=== PATIENT | female | born 1950 | race Caucasian/White ===

== ENCOUNTER 2021-07-03 12:49 | Emergency (ER) | payer OTHER, MEDICARE ==
[~2021-07-03] VITALS: Ht 160 cm; Wt 110.2 kg
[2021-07-03] MEDS ORDERED: GLIPIZIDE ER10 MG PO (13:41)
[2021-07-03] MEDS ORDERED: HYDROCHLOROTHIA25 MG PO (13:41)
[2021-07-03] MEDS ORDERED: ATORVASTATIN CA40 MG PO (13:41)
[2021-07-03] MEDS ORDERED: OMEPRAZOLE20 MG PO (13:41)
[2021-07-03] MEDS ORDERED: IRBESARTAN75 MG PO (13:41)
[2021-07-03] MEDS ORDERED: FLUTICASONE PRO16 GM NAS (13:42)
[2021-07-03] MEDS ORDERED: METFORMIN HCL750 MG PO (13:42)
== END 2021-07-03 14:50 | disposition home or self-care (01) ==
LOC: ED 12:49
DX: S60.051A Contusion of right little finger without damage to nail, initial encounter (principal); Z88.5 Allergy status to narcotic agent; W23.0XXA Caught, crushed, jammed, or pinched between moving objects, initial encounter
CPT/HCPCS: 73140; 99283-25; A9270

== ENCOUNTER 2025-01-13 07:47 | Day surgery (SDC) | payer MEDICARE, OTHER ==
[~2025-01-13] VITALS: Ht 157.5 cm; Wt 89.0 kg
[~2025-01-13 07:47] MED LIST: ATORVASTATIN CA40 MG PO; CEFAZOLIN SODIUM 2 GM in SODIUM CHLORIDE 0.9% 100 ML IV SCH; FLUTICASONE PRO16 GM NAS; GLIPIZIDE ER10 MG PO; HEParin SOD (PORCINE) 5,000 UNIT/ML SDV SUB-Q SCH; HYDROCHLOROTHIA25 MG PO; IBLOOD GLUCOSE TEST STRIP 1 EA TEST VI PRN; IRBESARTAN75 MG PO; LACTATED RINGER'S 1,000 ML IV SCH; LIDOCAINE HCL 1% 5 ML SDV INJ ONE; METFORMIN HCL750 MG PO; NORVASC10 MG PO; OMEPRAZOLE20 MG PO; OZEMPIC2 MG/0.75 SUB-Q
[2025-01-13 08:21] VITALS: BP 142/66
[2025-01-13] MEDS ORDERED: LIDOCAINE HCL 2% 5 ML SDV ONE (08:57)
[2025-01-13] MEDS ORDERED: Methylene Blue 100 MG/10 ML SDV ONE (09:30)
[2025-01-13] MEDS ORDERED: fentaNYL citrate 100 MCG/2 ML VIAL ONE ×2 (09:46→10:39)
[2025-01-13] MEDS ORDERED: KETOROLAC TROMETHAMINE 30 MG/ML VIAL ONE (10:36)
[2025-01-13] MEDS ORDERED: DEXAMETHASONE SOD PHOS 4 MG/ML VIAL ONE (10:36)
[2025-01-13] MEDS ORDERED: ACETAMINOPHEN 1,000 MG/100 ML VIAL ONE (10:46)
[2025-01-13] MEDS ORDERED: HYDROmorphone HCL 1 MG/ML SYR IV PRN (11:00)
[2025-01-13] MEDS ORDERED: IBLOOD GLUCOSE TEST STRIP 1 EA TEST VI PRN (11:00)
[2025-01-13] MEDS ORDERED: fentaNYL citrate 50 MCG/ML SDV IV PRN (11:00)
[2025-01-13] MEDS ORDERED: NALOXONE HCL 0.4 MG SYR IV PRN ×2 (11:00→11:45)
[2025-01-13] MEDS ORDERED: IBUPROFEN 600 MG TAB PO PRN (11:45)
[2025-01-13] MEDS ORDERED: IBUPROFEN600 MG PO (11:45)
[2025-01-13] MEDS ORDERED: ACETAMINOPHEN 500 MG TAB PO PRN (11:45)
[2025-01-13] MEDS ORDERED: OXYCODON-ACETA1 EAC2 PO (11:45)
[2025-01-13] MEDS ORDERED: OXYCODONE/APAP 7.5/325 TAB PO PRN (11:45)
[2025-01-13] MEDS ORDERED: ACETAMINOPHEN500 MG PO (11:46)
--- NOTE | 2025-01-13 12:05 | NUR ---
01/13/25 1205 Kaitlyn Patel 1127- PT PRESENTS TO PACU, SEMI HUBER POSITION, REACTIVE TO STIMULUS, BUT STAYS ASLEEP. BREATHING EVEN AND NON LABORED WITH O2 AT 6L PER MASK. LR INFUSING TO RFA IV. DRESSING TO LEFT BREAST AND LEFT AXILLA CDI. ABD SOFT, NON DISTENDED. ALL MONITORS IN PLACE. 1135- PT WAKES TO VERBAL STIMULUS, REORIENTED TO TIME AND PLACE. REPORTS SITE FEELING SORE, NO NAUSEA. 1137- MOVED TO ROOM AIR. 1145- PT C/O 6/10 PAIN, MEDICATED WITH FENTANYL PER ORDERS. DR GREGORY AT BEDSIDE TO DISCUSS FINDINGS. 1150- 2ND DOSE FENTANYL GIVE, NOT MUCH CHANGE FROM THE FIRST. 1152- ICE WATER PROVIDED, HEAD OF BED ELEVATED, TOLERATING WELL, NO NAUSEA. 1200- PT REEPORTS NO CHANGE IN PAIN, /10 AT THIS TIME, MEDICATED WITH DILAUDID PER ORDERS. WILL CONTINUE TO MONITOR.
[2025-01-13 12:28] VITALS: BP 144/59
--- NOTE | 2025-01-13 13:03 | NUR ---
1230: PATIENT BACK IN DAY SURGERY ROOM FROM PACU. RATES PAIN 4-5/10 IN THE LEFT BREAST AREA. LEFT BREAST AND LEFT AXILLARY DRESSING CLEAN, DRY AND INTACT. VS CHECKED. IV SITE WNL. TOLERATING WATER. GIVEN PUDDING TO EAT. CALL LIGHT WITHIN REACH. SON AT BEDSIDE. 1255: CHECKED PATIENT. TOLERATED PUDDING. NO NEEDS AT THIS TIME. SON AT BEDSIDE. CALL LIGHT WITHIN REACH.
[2025-01-13 13:30] VITALS: BP 132/61
[2025-01-13] MEDS ORDERED: SEVOFLURANE 250 ML BTL INH ONE (13:43)
--- NOTE | 2025-01-13 14:54 | NUR ---
1330: VS CHECKED. BOTH LEFT BREAST AND LEFT AXILLARY DRESSINGS CLEAN, DRY AND INTACT. PATIENT DECLINES PAIN MEDICATION AT THIS TIME. SON IN ROOM WITH PATIENT. CALL LIGHT WITHIN REACH. 1350: PATIENT ASSISTED OOB AND TO BATHROOM. GAIT STEADY. VOID WITHOUT DIFFICUTLY. GAIT STEADY BACK TO ROOM. 1411: DISCHARGE INSTRUCTIONS GIVEN TO PATIENT AND SON. PATIENT GETTING DRESSED. IV DC'D WNL. TIP INTACT. DRESSING APPLIED. 1418: PATIENT DISCHARGED TO HOME VIA WHEELCHAIR WITH SON.
--- NOTE | 2025-01-13 19:47 | OR ---
[facility] [address] [place], [place] [address] Signed DATE OF OPERATION: 01/13/2025 SURGEON: Sridevi Gregory MD PREOPERATIVE DIAGNOSES: Left medial central breast infiltrating ductal carcinoma, ER/NH positive, HER-2/adilson negative, grade 3. POSTOPERATIVE DIAGNOSES: Left medial central breast infiltrating ductal carcinoma, ER/NH positive, HER-2/adilson negative, grade 3. PROCEDURES: 1. Injection of methylene blue for sentinel lymph node identification. 2. Left deep axillary sentinel lymph node biopsies. 3. Left partial mastectomy with RENATA forge press operator localization, medial upper left breast. ANESTHESIA: General LMA, Roberto Villanueva CRNA and local 10 mL of 0.25% Marcaine with epinephrine. INDICATION: This 74-year-old white woman is a patient of Dr. Immanuel Mackay and known to me from the past for other issues. She had an annual mammogram, was found to have an abnormality on the left breast undergoing diagnostic unilateral mammogram and the central slightly medial left breast abnormality identified considered category 4. Biopsy was obtained by image guided on December 20, 2024 showing infiltrating ductal carcinoma considered grade 3. 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 The lesion was ER positive, NH positive, and HER-2/adilson negative. The lesion is not palpable clinically. I have offered various options of management for her breast cancer and she wishes to undergo image guided rather localization left partial mastectomy as well as sentinel lymph node biopsies, anticipating possible radiation therapy postoperatively and other interventions as appropriate. The risk of bleeding, infection, cosmetic deformity, other unforeseen complications related to operation were reviewed with her. She understands, wished to proceed. FINDINGS: Uptake with the RENATA forge press operator was reliable and located deep within the left breast in the Electronically Signed By: SRIDEVI GREGORY MD 01/13/25 194 PATIENT NAME: JEREMIAH DELGADO OPERATIVE REPORT DATE OF : 48 REPORT #: [id number] PHYSICIAN: SRIDEVI GREGORY MD PCP: IMMANUEL MACKAY DO REPORT IS CONFIDENTIAL AND NOT TO BE RELEASED WITHOUT AUTHORIZATION [facility] [address] [place], [place] [address] Signed central upper medial aspect. The left axillary sentinel lymph node signal was high and good uptake of methylene blue dye was noted as well. Final pathology is pending. The palpable lesion within the central portion of the excised breast measured approximately a centimeter or so not much more that clinically. Specimen radiograph confirmed the RENATA forge press operator lazarus was in the central portion of the specimen excised. DESCRIPTION OF PROCEDURE: The patient was brought to the operating room, given a general LMA type anesthetic. Preoperative antibiotic Ancef was given and sequential compression device stockings used and heparin subcutaneously administered. The left breast had been interrogated in the preoperative area assuring the RENATA forge press operator would be functional. The uptake was most dominant in the medial upper aspect of the left breast. Injection of 1 mL of 50% diluted methylene blue dye was undertaken in the left periareolar area. Interrogation of the left axilla with the C-Trak probe showed good uptake of radionuclide to the superior aspect of the axilla. The left breast and axillary area were prepared with a chlorhexidine solution and draped sterilely. Using the C-Trak probe as a guide, a small transverse incision was made in the superior aspect of the axilla. Dissection carried through the subcutaneous tissue with electrocautery and blunt dissection and axillary fat incised. Entry to the axillary cavity allowed for re-application of the C-Trak probe and the area of maximum radioactive uptake identified. Further dissection showed blue lymphatics leading ultimately to an obvious axillary lymph node. This was dissected free with a generous amount of additional axillary fat with it and was excised and affirmed to have good uptake of the radioactivity and blue dye and at least one sentinel lymph node in the central portion, but likely others as well. A suture was placed into the lymph node for pathologic identification. There was no sign of untoward bleeding in the axilla. Reinspection with the C-Trak probe showed no other areas of uptake. There was no other blue lymphatic channels to identify or other sentinel lymph nodes at this point. The wound was then packed with laparotomy sponge and plan turned to excision of the breast lesion itself. Using the RENATA forge press operator probe device, significant uptake was noted in the medial upper aspect of the left breast. Although, a cosmetic incision with a circumareolar approach would be optimal. The lesion was simply too far for this to be practical and on that basis, an incision was made directly over the medial upper aspect of the left breast in the area of maximum uptake for the RENATA forge press operator device. An incision was made with a 15 blade, was divided with electrocautery. Some parenchyma was traversed before wide resection undertaken with an Allis clamp, securing the area in question. The RENATA forge press operator probe was helpful in orienting for the excision. Excision was taken down to the pectoralis fascia, first superiorly, then medially, and then inferiorly and laterally. The specimen was extracted, marked with a short stitch superior and long stitch lateral for pathologic orientation. The RENATA probe affirmed that the forge press operator was in the central portion of breast. Gentle palpation of the excised specimen did demonstrate a firm Electronically Signed By: SRIDEVI GREGORY MD 01/13/251946 PATIENT NAME: JEREMIAH DELGADO OPERATIVE REPORT DATE OF : 48 REPORT #: [id number] PHYSICIAN: SRIDEVI GREGORY MD PCP: IMMANUEL MACKAY DO REPORT IS CONFIDENTIAL AND NOT TO BE RELEASED WITHOUT AUTHORIZATION [facility] [address] [facility] [place] [place] [address] Signed nodule in the center portion of the breast specimen corresponding to the lesion in question. Subsequent evaluation by the radiologist confirmed that the RENATA forge press operator was in the central portion of the excised breast. Irrigation was undertaken in this excision cavity. Cavity was marked on its surface and in the parenchyma with small clips for possible radiation therapy in the future. The wound was then closed with interrupted 2-0 Vicryl including the parenchyma of the breast and a small portion of the pectoralis. Good reapproximation was noted. The skin was closed with running subcuticular 3-0 Vicryl. Steri-Strips were applied as was an Acticoat dressing. Reinspection of the left axilla shows good hemostasis. The wound was closed in layers with interrupted 2-0 Vicryl and running subcuticular 3-0 Vicryl for the skin. Steri-Strips were applied to both wounds and Acticoat dressings applied to both as well. Blood loss was less than 10 mL in aggregate. Sponge, needle, and instrument counts reported as correct x3. MD ZEIO Phipps/ORA /[id number] cc: Immanuel Mackay DO Copies: IMMANUEL MACKAY DO ~ Electronically Signed By: SRIDEVI GREGORY MD 01/13/25 1947 PATIENT NAME: JEREMIAH DELGADO OPERATIVE REPORT DATE OF : 48 REPORT #: [id number] PHYSICIAN: SRIDEVI GREGORY MD PCP: IMMANUEL MACKAY DO REPORT IS CONFIDENTIAL AND NOT TO BE RELEASED WITHOUT AUTHORIZATION
--- NOTE | 2025-01-17 16:11 | PATH ---
[facility] [address] [facility] [place], [place] [address] Signed SPECIMEN(S): A LEFT BREAST SENTINEL LYMPH NODE SPECIMEN(S): B LEFT BREAST SPECIMEN SOURCE: A. LEFT BREAST SENTINEL LYMPH NODE B. LEFT BREAST CLINICAL HISTORY: Infiltrating ductal carcinoma left breast. FINAL PATHOLOGIC DIAGNOSIS: A. Left deep sentinel lymph node stitch cordova lymph node: - 3 lymph nodes negative for metastatic neoplasm by routine HE stain (0/3) B. Left breast lumpectomy: - Focal residual invasive ductal carcinoma; favor intermediate grade (see synoptic report) - Focal intermediate grade ductal carcinoma in situ - Changes consistent with previous biopsy INVASIVE CARCINOMA OF THE BREAST: Resection Applies To: A�B SPECIMEN Procedure: Excision (less than total mastectomy) Specimen Laterality: Left TUMOR Histologic Type: Invasive carcinoma of no special type (ductal) Glandular (Acinar) / Tubular Differentiation: Score 3 Nuclear Pleomorphism: Score cannot be determined Mitotic Rate: Score cannot be determined Overall Grade: Score cannot be determined - Due to the small size of the residual focus and accompanying tissue artifact, an exact grade cannot be rendered. Tumor Size: Greatest dimension of largest invasive focus (Millimeters) - 2 mm Ductal Carcinoma In Situ (DCIS): Present Size (Extent) of DCIS: Estimated size (extent) of DCIS is at least (Millimeters) - 5 mm Architectural Patterns: Comedo, Solid Nuclear Grade: Grade II (intermediate) Necrosis: Present, central (expansive "comedo" necrosis) Number of Blocks with DCIS: 1 Number of Blocks Examined: 9 PATIENT NAME: JEREMIAH URENA RECORD #: [id number] PATHOLOGY DATE OF : 48 REPORT #: [id number] PHYSICIAN: CURTIS LOYA PCP: ADRIANA MACKAY DO REPORT IS CONFIDENTIAL AND NOT TO BE RELEASED WITHOUT AUTHORIZATION [facility] [address] [place], [place] [address] Signed Lymphatic and / or Vascular Invasion: Not identified Microcalcifications: Present in DCIS Treatment Effect in the Breast: No known presurgical therapy MARGINS Margin Status for Invasive Carcinoma: All margins negative for invasive carcinoma Distance from Invasive Carcinoma to Closest Margin: 5 mm Closest Margin(s) to Invasive Carcinoma: Superior Margin Status for DCIS: All margins negative for DCIS Distance from DCIS to Closest Margin: 4 mm Closest Margin(s) to DCIS: Superior REGIONAL LYMPH NODES Regional Lymph Node Status: All regional lymph nodes negative for tumor Total Number of Lymph Nodes Examined (sentinel and non-sentinel): 3 Number of Ingraham Nodes Examined: 3 pTNM CLASSIFICATION (AJCC 8th Edition) pT Category: pT1a pN Category: pN0 N Suffix: (sn) Breast Biomarker Testing Performed on Previous Biopsy: Estrogen Receptor (ER) Status: Positive (greater than 10% of cells demonstrate nuclear positivity) Progesterone Receptor (PgR) Status: Positive HER2 (by immunohistochemistry): Equivocal (Score 2+) HER2 (by in situ hybridization): Negative (not amplified) Testing Performed on BB MICROSCOPIC EXAMINATION: Histologic sections of all submitted blocks are examined by light microscopy. These findings, together with the gross examination, support the pathologic diagnosis. GROSS DESCRIPTION: A. The specimen, labeled and designated "Romel, M, left deep sentinel lymph node stitch cordova lymph node," is received in formalin and consists of 5.7 x 4.5 x 2.6 cm portion of yellow-malik adipose tissue that displays a black suture identifying one possible lymph node with a blue dye discoloration that is 1.5 cm in greatest dimension. Upon further dissection an additional two possible lymph nodes are gross identified measuring up to 4.6 cm in greatest dimension. The PATIENT NAME: JEREMIAH URENA PATHOLOGY DATE OF : 48 REPORT #: [id number] PHYSICIAN: CURTIS LOYA PCP: ADRIANA MACKAY DO REPORT IS CONFIDENTIAL AND NOT TO BE RELEASED WITHOUT AUTHORIZATION [facility] [address] [place], [place] [address] Signed lymph nodes are entirely submitted only adipose tissue remains within the container. Cassette Summary: (A1) one possible lymph node with a blue dye discoloration, sectioned (A2) one possible lymph node, bisected (A3-A5) one possible lymph node, sectioned B. The specimen, labeled and designated "Gregg Urena, " and designated on the requisition "left breast lumpectomy tissue," is received in formalin and consists of 94 gram oriented portion of yellow-malik fibroadipose tissue that is 9.6 x 9.2 x 2.8 cm. A short suture is present and identifies the superior margin; a long suture identifies the lateral margin. The specimen is inked as follows: superior - blue; inferior - green; medial - red; lateral - orange; anterior - yellow; and posterior - black. The specimen is serially sectioned from medial to lateral into 11 slices revealing a 1.6 x 1.4 x 1.0 cm pink-white firm ill-defined mass present in slices 4-6. The mass is 4.8 cm from the anterior soft tissue margin, 2.8 cm from the posterior soft tissue margin, 0.3 cm from the superior soft tissue margin, 0.5 cm from the inferior soft tissue margin, 1.7 cm from the medial soft tissue margin, and 3.7 cm from the lateral soft tissue margin. A metallic supervisor type photography detector is identified in slice six. Approximately 80% of the remaining specimen is a yellow-malik greasy adipose tissue and 20% is a white-malik delicate pink fibrous tissue. Retail Specialist sections are submitted in nine cassettes. Cassette Summary: (B1) slice one, medial soft tissue resection margin, perpendicular (B2) fibroadipose tissue adjacent, medial to mass, slice three (B3-B5) mass to closest superior and inferior soft tissue resection margins, perpendicular, slices 4-6 (B6) fibroadipose tissue adjacent, lateral to mass, slice seven (B7) posterior soft tissue resection margin, perpendicular (B8) anterior soft tissue resection margin, perpendicular (B9) slice 11, lateral soft tissue resection margin, perpendicular Time of collection: 11:03 AM January 13, 2025. Time into formalin: 11:03 AM January 13, 2025. Processor load time: 12 PM January 14, 2025. Total fixation time in formalin: 24 hours 57 minutes The ASCO/CAP guidelines related to HER2 and hormone receptor testing in breast specimens have been met and the specimen has been placed in formalin within one hour and fixed in 10% neutral buffered PATIENT NAME: JEREMIAH URENA PATHOLOGY DATE OF : 48 REPORT #: [id number] PHYSICIAN: CURTIS PATHOLOGY PCP: ADRIANA MACKAY DO REPORT IS CONFIDENTIAL AND NOT TO BE RELEASED WITHOUT AUTHORIZATION [facility] [address] [facility] [place] [address] Signed formalin for 6 to 72 hours. FB (under the direct supervision of a pathologist) The Gross Description was prepared using a voice recognition system. The report was reviewed for accuracy; however, sound-alike word errors, addition and/or deletions may occur. If there is any question about this report, please contact Client Services. ADDITIONAL NOTES: Immunohistochemical and/or in situ hybridization studies if performed in this case included appropriate positive controls that reacted as expected. This test was developed and its performance characteristics determined by [facility]. It has not been cleared or approved by the U.S. Food and Drug Administration. The FDA has determined that such clearance or approval is not necessary. This test is used for clinical purposes. It should not be regarded as investigational or for research. [facility] is certified under the Clinical Laboratory Improvement Amendments of 1988 (CLIA) as qualified to perform high complexity clinical laboratory testing. PERFORMING LABORATORY: Technical component was performed by [facility], [address] [place] [id number] (CLIA# [id number]). Professional interpretation was performed [place] [address] (CLIA#: [id number]). Diagnostician: Yonatan Vidal MD Pathologist Electronically Signed 01/17/2025 Copies: ~ PATIENT NAME: JEREMIAH URENA PATHOLOGY DATE OF : 48 REPORT #: [id number] PHYSICIAN: CURTIS LOYA PCP: ADRIANA MACKAY DO REPORT IS CONFIDENTIAL AND NOT TO BE RELEASED WITHOUT AUTHORIZATION
== END 2025-01-13 14:18 | disposition home or self-care (01) ==
LOC: OPS 07:47 → DS 07:47 → EDSTATUS 09:00 → NUC 09:00 → OPS 09:00
PROVIDERS: ATTEND Surgery
PROC: 0HBU0ZZ Excision of Left Breast, Open Approach (ICD-10-PCS; principal; 2025-01-13 10:00)
PROC: 07B60ZZ Excision of Left Axillary Lymphatic, Open Approach (ICD-10-PCS; 2025-01-13 10:00)
DX: C50.112 Malignant neoplasm of central portion of left female breast (principal); Z17.0 Estrogen receptor positive status [ER+]; Z17.21 Progesterone receptor positive status; Z17.32 Human epidermal growth factor receptor 2 negative status; I10 Essential (primary) hypertension; E13.9 Other specified diabetes mellitus without complications; Z90.49 Acquired absence of other specified parts of digestive tract
CPT/HCPCS: 00400; 76098; 78195; 88307; A9541; J0131; J0688; J1100; J1171; J1644; J1885; J2003; J2405; J2704; J3010; J3490; J7121